=== PATIENT | male | born 1965 | race Hispanic/Latino ===

== ENCOUNTER 2019-09-04 08:53 | Day surgery (SDC) | payer OTHER ==
[2019-09-04] VITALS (12 sets, daily range): BP systolic 104–135; BP diastolic 67–93
[~2019-09-04] VITALS: Ht 188 cm; Wt 86.2 kg
[~2019-09-04 08:53] MED LIST: LEVO125T11 PO; MORP30TA71 PO; NALO4SPR NS; OXYC-586 PO; QUET400T12 PO; SODIUM CHLORIDE 0.9% 1000ML 1,000 ML IV ONE
[2019-09-04] MEDS ORDERED: IOHEXOL-350 50ML VIAL IV ONE (10:23)
[2019-09-04] MEDS ORDERED: ESMOLOL HCL 10 MG/ML 10 ML VIAL ONE ×2 (10:30)
[2019-09-04] MEDS ORDERED: PROPOFOL 10 MG/ML 20ML VIAL IV ONE (10:30)
[2019-09-04] MEDS ORDERED: LIDOCAINE HCL 1% 20 ML VIAL ONE (10:30)
[2019-09-04] MEDS ORDERED: PHENYLEPHRINE HCL 10 MG/ML 1ML VIAL IV ONE (10:30)
[2019-09-04] MEDS ORDERED: SUCCINYLCHOLINE 200MG/10ML SYR ONE (10:34)
[2019-09-04] MEDS ORDERED: FENTANYL CITRATE PF 50 MCG/1 ML 2ML VIAL ONE (10:39)
[2019-09-04] MEDS ORDERED: INDOMETHACIN 50 MG SUPP.RECT RC SCH (11:00)
[2019-09-04] MEDS ORDERED: ZOSYN 3.375GM+NS 50ML 50 ML IV SCH (11:45)
== END 2019-09-04 13:30 | disposition home or self-care (01) ==
LOC: DAH 08:53 → ENDO 08:53
PROVIDERS: ATTEND Internal Medicine
DX: K80.30 Calculus of bile duct with cholangitis, unspecified, without obstruction (principal); K59.00 Constipation, unspecified; K92.2 Gastrointestinal hemorrhage, unspecified; E03.9 Hypothyroidism, unspecified; Z79.899 Other long term (current) drug therapy; F41.9 Anxiety disorder, unspecified; F32.9 Major depressive disorder, single episode, unspecified; M81.0 Age-related osteoporosis without current pathological fracture; M19.90 Unspecified osteoarthritis, unspecified site; Z96.612 Presence of left artificial shoulder joint; Z90.49 Acquired absence of other specified parts of digestive tract; Z98.890 Other specified postprocedural states
CPT/HCPCS: 43264; 43276; 74328; A4215; A4221; A4222; A4223; A4606; A4663; C1769; C1773; C2625; J0330; J2370; J2543; J2704; J3010; J3490 ×2; J7030; Q9967; 74330

== ENCOUNTER 2019-11-18 06:16 | Day surgery (SDC) | payer OTHER ==
[2019-11-18] VITALS (15 sets, daily range): BP systolic 116–149; BP diastolic 80–96
[~2019-11-18] VITALS: Ht 188 cm; Wt 90.7 kg
[~2019-11-18 06:16] MED LIST changes: -OXYC-586 PO; +OXYC5TAB3 PO; -SODIUM CHLORIDE 0.9% 1000ML 1,000 ML IV ONE
[2019-11-18] MEDS ORDERED: SODIUM CHLORIDE 0.9% 500ML 0 ML IV ONE (06:18)
[2019-11-18] MEDS ORDERED: SODIUM CHLORIDE 0.9% 1000ML 1,000 ML IV ONE (06:23)
[2019-11-18] MEDS ORDERED: IOHEXOL-350 50ML VIAL IV ONE (07:15)
[2019-11-18] MEDS ORDERED: INDOMETHACIN 50 MG SUPP.RECT RC SCH (07:30)
[2019-11-18] MEDS ORDERED: MEPERIDINE-PF 25 MG/ML SYG ONE (09:12)
[2019-11-18] MEDS ORDERED: PROPOFOL 10 MG/ML 20ML VIAL IV ONE (09:12)
[2019-11-18] MEDS ORDERED: SUCCINYLCHOLINE 200MG/10ML SYR ONE (09:12)
[2019-11-18] MEDS ORDERED: PHENYLEPHRINE HCL 10 MG/ML 1ML VIAL IV ONE (09:44)
== END 2019-11-18 11:38 | disposition home or self-care (01) ==
LOC: DAH 06:16 → ENDO 06:16
PROVIDERS: ATTEND Internal Medicine
DX: K80.30 Calculus of bile duct with cholangitis, unspecified, without obstruction (principal); K59.00 Constipation, unspecified; F41.9 Anxiety disorder, unspecified; F32.9 Major depressive disorder, single episode, unspecified; E03.9 Hypothyroidism, unspecified; M19.90 Unspecified osteoarthritis, unspecified site; M81.0 Age-related osteoporosis without current pathological fracture; Z90.49 Acquired absence of other specified parts of digestive tract; Z96.642 Presence of left artificial hip joint; Z79.899 Other long term (current) drug therapy
CPT/HCPCS: 43265; 43273; 43276; 74330; A4215; A4221; A4222; A4223; A4606; A4657 ×2; A4663; C1769 ×2; C1773; C2625; J0330; J2370; J2704; J7030; Q9967; 43249; J2175; J7040

== ENCOUNTER 2020-01-23 06:38 | Day surgery (SDC) | payer OTHER ==
[2020-01-23] VITALS (13 sets, daily range): BP systolic 124–142; BP diastolic 85–96
[~2020-01-23] VITALS: Ht 188 cm; Wt 83.9 kg
[~2020-01-23 06:38] MED LIST changes: +SODIUM CHLORIDE 0.9% 1000ML 1,000 ML IV ONE
[2020-01-23] MEDS ORDERED: IOHEXOL-350 50ML VIAL IV ONE (08:32)
[2020-01-23] MEDS ORDERED: INDOMETHACIN 50 MG SUPP.RECT RC SCH (09:00)
== END 2020-01-23 12:45 | disposition home or self-care (01) ==
LOC: ENDO 06:38 → DAH 06:38 → ENDO 06:41 → EDSTATUS 09:45 → ENDO 12:45
PROVIDERS: ATTEND Internal Medicine Gastroenterology
DX: K80.50 Calculus of bile duct without cholangitis or cholecystitis without obstruction (principal); Z11.59 Encounter for screening for other viral diseases; F32.9 Major depressive disorder, single episode, unspecified; E03.9 Hypothyroidism, unspecified; M81.0 Age-related osteoporosis without current pathological fracture; F41.9 Anxiety disorder, unspecified; F11.90 Opioid use, unspecified, uncomplicated; Z90.49 Acquired absence of other specified parts of digestive tract; Z96.642 Presence of left artificial hip joint; Z98.890 Other specified postprocedural states; Z72.89 Other problems related to lifestyle; Z87.891 Personal history of nicotine dependence; Z79.899 Other long term (current) drug therapy
CPT/HCPCS: 36415; 43264; 43276; 74328; A4215; A4221; A4222; A4223; A4606; A4657 ×2; A4663; C1769; C2625; J7030; Q9967; U0003; 74330

== ENCOUNTER 2023-12-26 08:56 | Day surgery (SDC) | payer OTHER ==
[2023-12-26] VITALS (12 sets, daily range): BP systolic 84–139; BP diastolic 55–90; PULSE 58–76; RESP 14–17
[~2023-12-26] VITALS: Ht 188 cm; Wt 86.2 kg
[~2023-12-26 08:56] MED LIST changes: -NALO4SPR NS; +QUET400T PO; -QUET400T12 PO; -SODIUM CHLORIDE 0.9% 1000ML 1,000 ML IV ONE
[2023-12-26] MEDS: LACTATED RINGERS 1000ML 1,000 ML IV ONE (09:53)
[2023-12-26] MEDS ORDERED: INDOMETHACIN 100 MG SUPP.RECT RC ONE (10:00)
[2023-12-26] MEDS ORDERED: PROPOFOL 10 MG/ML 20ML VIAL IV ONE (10:20)
[2023-12-26] MEDS ORDERED: LIDOCAINE HCL 1% 20 ML VIAL ONE (10:24)
[2023-12-26] MEDS ORDERED: IOHEXOL-350 50ML VIAL IV ONE (10:41)
== END 2023-12-26 12:10 | disposition home or self-care (01) ==
LOC: ENDO 08:56 → DAH 08:56 → ENDO 12:10
PROVIDERS: ATTEND Internal Medicine
DX: Z46.59 Encounter for fitting and adjustment of other gastrointestinal appliance and device (principal); K80.30 Calculus of bile duct with cholangitis, unspecified, without obstruction; R94.5 Abnormal results of liver function studies; K59.04 Chronic idiopathic constipation; E03.9 Hypothyroidism, unspecified; F41.9 Anxiety disorder, unspecified; F32.A Depression, unspecified; M81.0 Age-related osteoporosis without current pathological fracture; M19.90 Unspecified osteoarthritis, unspecified site; Z86.19 Personal history of other infectious and parasitic diseases; Z86.010 Personal history of colon polyps; Z90.49 Acquired absence of other specified parts of digestive tract; Z98.890 Other specified postprocedural states
CPT/HCPCS: 43264; 74328; 43275; J7120; J2704; Q9967; A4620; A4215 ×2; A4223; A4222; A4221; A4663; A4606; C1769; C1773; 74330; J3490

== ENCOUNTER 2025-07-04 17:30 | Emergency (ER) | payer OTHER ==
[~2025-07-04] VITALS: Ht 188 cm; Wt 124.7 kg
--- NOTE | 2025-07-04 17:53 | ERN ---
ED Note History of Present Illness Stated Complaint: HYPOGLYCEMIA Chief Complaint: Hypoglycemia Time Seen by MD: 17:36 Time Seen by Midlevel: 17:37 Dictation: 59-year-old male who presents to the emergency department per EMS due to report of feeling generalized weakness. As per EMS, she was picked up at a local facility with a report of having a blood sugar of 59 and a systolic blood pressure in the low 90s. Currently, he denies having any headache, changes in vision, nausea, vomiting, chest pain, chest pressure or shortness of breath. The patient states that his only medical history is that of having generalized body aches requiring him to take MS Contin twice a day. Currently, she reports having generalized weakness. Upon initial evaluation, the patient presents with a normal neurological examination. Allergies: Coded Allergies: No Known Drug Allergies (Verified Allergy, Unknown, 09/04/19) Emergency Care [employer]: IV Home Meds Reported Medications Quetiapine Fumarate (Seroquel) 400 Mg Tablet, 400 MG PO HS, TAB 12/25/23 Morphine Sulfate (Morphine Sulfate) 30 Mg Tablet, 30 MG PO BID, TAB 09/03/19 Levothyroxine Sodium (Levothyroxine Sodium) 125 Mcg Tablet, 125 MCG PO DAILY, TAB 09/03/19 Oxycodone HCl (Oxycodone HCl) 5 Mg Tablet, 5 MG PO QID, TAB 09/03/19 Past Medical History Past Medical History: No Pertinent History Surgical History: None PSYCH History: no pertinent psych hx RN Note Reviewed/Agreed w/PFSH: Yes Review of System Dictation Neuro: Generalized weakness Initial Vital Sign VS Vital Signs Date Time Temp Pulse Resp B/P (MAP) Pulse Ox O2 Delivery O2 Flow Rate FiO2 07/04/25 17:32 98.2 83 15 120/81 99 Room Air 0 07/04/25 18:01 21 Physical Exam Dictation General: awake, alert, NAD Head/Face: Normocephalic, atraumatic Eyes: PERRL, EOMI ENT: Oral mucosa moist Neck: Trachea midline, supple Cardiovascular: RRR, no edema Respiratory: Symmetrical, non-labored Abdomen: Soft, non-tender, non-distended, no guarding. Skin: Warm, dry, good turgor, no rash MS/Extremity: Pulses equal, no cyanosis, neurovascular intact, FROM Neuro: COAx4, GCS 15, steady gait, Psych: Normal behavior, mood, and affect normal Results (Laboratory/Radiology) Laboratory/Radiology Laboratory Tests Test 07/04/25 17:52 07/04/25 18:44 07/04/25 19:28 07/04/25 19:39 White Blood Count 6.0 K/uL (4.8-10.8) Red Blood Count 4.55 MIL/uL (4.50-6.20) Hemoglobin 13.2 g/dL (14.0-18.0) L Hematocrit 40.0 % (42-54) L Mean Corpuscular Volume 87.9 fL (79-99) Mean Corpuscular Hemoglobin 29.0 pg (27.0-33.0) Mean Corpuscular Hemoglobin Concent 33.0 g/dL (32.0-36.0) Red Cell Distribution Width 12.3 % (11.0-15.5) Platelet Count 216 K/uL (130-400) Mean Platelet Volume 10.2 fL (7.5-10.5) Immature Granulocyte % (Auto) 0.2 % (0-1) Neutrophils (%) (Auto) 59.3 % (40.0-77.0) Lymphocytes (%) (Auto) 31.7 % (21.0-51.0) Monocytes (%) (Auto) 6.5 % (3.0-13.0) Eosinophils (%) (Auto) 1.8 % (0.0-8.0) Basophils (%) (Auto) 0.5 % (0.0-5.0) Neutrophils # (Auto) 3.5 K/uL (1.8-7.7) Lymphocytes # (Auto) 1.9 K/uL (1.0-4.8) Monocytes # (Auto) 0.4 K/uL (0.1-1.0) Eosinophils # (Auto) 0.11 K/uL (0.00-0.70) Basophils # (Auto) 0.03 K/uL (0.00-0.20) Absolute Immature Granulocyte (auto 0.01 K/uL (0-1) Nucleated Red Blood Cells 0.0 % (0.0-0.19) Sodium Level 139 mmol/L (136-145) Potassium Level 4.6 mmol/L (3.5-5.1) Chloride Level 104 mmol/L (101-111) Carbon Dioxide Level 31 mmol/L (21-32) Blood Urea Nitrogen 18 mg/dL (7-18) Creatinine 1.1 mg/dL (0.5-1.3) Glomerular Filtration Rate Calc 77 mL/min (>90) Random Glucose 97 mg/dL (70-105) Lactic Acid Level 1.0 mmol/L (0.8-2.5) Total Calcium 8.7 mg/dL (8.5-10.1) Magnesium Level 2.00 mg/dL (1.80-2.40) Total Bilirubin 0.3 mg/dL (0.2-1.0) Aspartate Amino Transf (AST/SGOT) 42 U/L (10-37) H Alanine Aminotransferase (ALT/SGPT) 61 U/L (12-78) Alkaline Phosphatase 202 U/L (50-136) H Troponin I High Sensitivity 8 ng/L (4-75) 9 ng/L (4-75) Total Protein 6.8 g/dL (6.0-8.3) Albumin 3.6 g/dL (3.5-5.0) Whole Blood Glucose 85 MG/DL (70-110) 86 MG/DL (70-110) Labs Reviewed?: Yes EKG: (+) NSR EKG Comment: EKG done on 07/04/2025 at 5:52 p.m. Ventricular rate 87 beats per minute One hundred ninety-two MS QRS 80 MS QT 392 MS No STEMI. X-RAY Comment: Chest x-ray one view with no infiltrates and a normal-appearing cardiac silhouette as interpreted by me. ED Course ED Course Orders Procedure Category Date Status Time Troponin I High LAB 07/04/25 Complete Sensitivity 17:45 Cbc With Differential LAB 07/04/25 Complete 17:45 Comprehensive LAB 07/04/25 Complete Metabolic Panel 17:45 Lactic Acid LAB 07/04/25 Complete 17:45 Magnesium LAB 07/04/25 Complete 17:45 12 Lead Ekg Tracing- EKG 07/04/25 Logged Technical 17:45 Chest 1vw RAD 07/04/25 Resulted 17:45 0.9%Nacl 1000ml (Ns PHA 07/04/25 Complete 1000ml) 18:00 Troponin I High LAB 07/04/25 Complete Sensitivity 19:26 Current Medications Medications (Trade) Dose Ordered Sig/Meoldy Route PRN Reason Start Time Stop Time Status Last Admin Dose Admin Sodium Chloride 1,000 ml @ 0 mls/hr ONCE ONCE IV 07/04/25 18:00 07/04/25 18:01 DC 07/04/25 18:12 Vital Signs Date Time Temp Pulse Resp B/P (MAP) Pulse Ox O2 Delivery O2 Flow Rate FiO2 07/04/25 19:40 98.4 76 17 118/85 98 Room Air* 0 21 07/04/25 18:50 98.2 84 15 118/85 95 Room Air* 0 21 07/04/25 18:01 98.2 83 15 120/81 99 Room Air* 0 21 07/04/25 17:32 98.2 83 15 120/81 99 Room Air 0 HEART Score Response (Comments) Value History: Low suspicion (0) 0 EKG: Normal 0 Age: 45-65yrs (+1) 1 Risk Factors: 1-2 risk factors (+1) 1 Initial Troponin: Normal limit (0) 0 HEART Score Risk: Low Risk for MACE (1-3) Total 2 Medical Decision Making MDM MDM: Differential diagnosis: STEMI, non STEMI, electrolyte imbalance, generalized weakness. Rationale: Tests considered and ordered secondary to shared decision making include: Previous outside records reviewed: Old ER visits. Risk of complication and/or morbidity or mortality of patient management: None Medications-Per medication reconciliation Need for hospitalization: Patient does not meet criteria for hospitalization. Need for emergency major/minor surgery: No There are no social concerns with this patient. Prescription drug management Prescriptions will include symptomatic care Patient's prior external medical records from other ER visits were reviewed by me as indicated. Prior testing and results from previous visits were reviewed. Prior tests were taken into account with medical decision making and resource utilization, independent historian/historians were used to obtain complete medical history. I independently interpreted the test that were performed, results were reviewed by me and considered findings on radiology if ordered. Medical management and examination interpretation discussions were had by me with other qualified healthcare professionals as indicated for the patient's care. DX & DISP Disposition: Discharge Departure Impression: Primary Impression: Generalized weakness Additional Impression: Hypoglycemia Condition: Stable Referrals: CELENA OQUENDO (PCP) Time of Disposition: 20:17 KERRI GOMEZ Jul 04, 2025 17:53
[2025-07-04 18:00] LABS: IMMATURE GRANULOCYTE ABSOLUTE 0.01 K/uL (0-1); NUCLEATED RED BLOOD CELLS 0.0 % (0.0-0.19); PLATELET COUNT (AUTO) 216 K/uL (130-400); RED BLOOD CELL COUNT(AUTO) 4.55 MIL/uL (4.50-6.20); RED CELL DISTRIBUTION WIDTH 12.3 % (11.0-15.5); WHITE BLOOD COUNT (AUTO) 6.0 K/uL (4.8-10.8)
--- NOTE | 2025-07-04 18:01 | NUR ---
PATIENT IN ROOM
[2025-07-04] MEDS: 0.9%NACL 1000ML 1,000 ML IV ONE (18:12)
[2025-07-04 18:14] LABS: CREATININE 1.1 mg/dL (0.5-1.3); GLOMERULAR FILTR. RATE CALC 77.0 mL/min (>90); GLUCOSE,RANDOM 97.0 mg/dL (70-105); SODIUM SERUM 139.0 mmol/L (136-145); UREA NITROGEN, BLOOD 18.0 mg/dL (7-18)
[2025-07-04 18:18] LABS: ASPARTATE AMINOTRANSFERASE 42.0 U/L (10-37); TOTAL PROTEIN, SERUM 6.8 g/dL (6.0-8.3)
--- NOTE | 2025-07-04 19:55 | HMCIMG ---
EXAM: CR Chest, 1 View. CLINICAL HISTORY: Pain COMPARISON: None provided. FINDINGS: LUNGS: There is no mass, infiltrate, or acute pulmonary abnormality. PLEURAL SPACES: No evidence of pleural effusion or pneumothorax. MEDIASTINUM: The cardiomediastinal silhouette is within normal limits. BONES: No acute osseous abnormality. IMPRESSION: No acute cardiopulmonary pathology is evident. /[place]
--- NOTE | 2025-07-04 20:29 | EKG ---
[facility] Test Date: 2025-07-04 Test Time: 17:52:34 Pat Name: CLARITA CLINTON Department: [facility] Room: Gender: M [employer]: [id number] : 1965 Requested By: KERRI GOMEZ Order Number: [id number] Reading MD: Nahun Berkowitz Measurements Intervals [place] Rate: 87 P: 29 HI: 192 QRS: 37 QRSD: 80 T: 13 QT: 392 QTc: 471 Interpretive Statements Sinus rhythm No previous ECG available for comparison Electronically Signed On 07-05-2025 08:27:17 [employer] CLERK by Nahun Berkowitz Please click the below link to view image of tracing.
[2025-07-04 21:11] VITALS: BP 118/76; PULSE 85; RESP 17; TEMP 98.6; O2SAT 96
== END 2025-07-04 21:25 | disposition home or self-care (01) ==
LOC: EDH 17:30
DX: R53.1 Weakness (principal); E16.2 Hypoglycemia, unspecified; Z79.890 Hormone replacement therapy
CPT/HCPCS: 99285; 96360; 71045; 83735; 84484 ×2; 80053; 85025; 82948 ×2; 83605; 36415; 93005; J7030